=== PATIENT | female | born 1965 | race African-American/Black ===

== ENCOUNTER 2020-02-21 06:01 | Observation (INO) | payer OTHER ==
[~2020-02-21] VITALS: Ht 160 cm; Wt 58.7 kg
[2020-02-21] VITALS (9 sets, daily range): BP systolic 115–182; BP diastolic 67–119
[2020-02-21] MEDS ORDERED: NITRO0.4 SL (06:06)
[2020-02-21] MEDS ORDERED: hydroCHLOROthiazide 25mg cap ORAL ONE (06:15)
[2020-02-21] MEDS ORDERED: Aspirin Baby 81mg ORAL ONE (06:15)
--- NOTE | 2020-02-21 06:18 | Emergency Room Report ---
History of Present Illness General Chief Complaint: Abdominal Pain Source: EMS Present Illness HPI Patient is a 56-year-old female who presents after increased right-sided chest discomfort. Reports having onset of symptoms just prior to arrival 30 minutes. He reports that she reports having increased sharp pain to the right side. Does not radiate. Also reports having a right upper abdomen pain. Denies any hematemesis. States she is not a smoker. Reports having prior history of hypertension and CHF. No prior abdominal surgeries other than . Patient states she ran out of her hydrochlorothiazide 2 days ago. Denies any new leg swelling. Denies any fever. Denies any cough. 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 Patient History Past Medical History: see triage record Reviewed Nursing Documentation: PMH: Agreed; PSxH: Agreed Nursing Documentation-PMH Hx Cardiac Problems: Yes - CHF Hx Hypertension: Yes Review of Systems All Other Systems: negative except mentioned in HPI Physical Exam Vital Signs Date Time Temp Pulse Resp B/P (MAP) Pulse Ox O2 Delivery O2 Flow Rate FiO2 02/21/20 06:01 98.8 68 18 181/119 (139) 99 Room Air Sp02 EP Interpretation: reviewed, normal General Appearance: normal inspection, well appearing, no apparent distress, alert, GCS 15, non-toxic Head: atraumatic ENT: normal ENT inspection, hearing grossly normal, normal voice Neck: normal inspection, full range of motion, supple, no bony tend Respiratory: normal inspection, lungs clear, normal breath sounds, no respiratory distress, no retraction, no wheezing Cardiovascular #1: regular rate, rhythm, no edema Gastrointestinal: normal inspection, normal bowel sounds, non tender, soft, no guarding, no hernia Genitourinary: no CVA tenderness Musculoskeletal: normal inspection, back normal, normal range of motion Neurologic: alert, motor strength/tone normal, bridge repairer III-XII nml as tested, oriented x3, responsive, speech normal, normal inspection Psychiatric: normal inspection, judgement/insight normal, mood/affect normal Medical Decision Making Diagnostic Impression: Primary Impression: Chest pain Additional Impressions: Incomplete RBBB Uncontrolled hypertension ER Course Patient presented for abdominal pain. Differential diagnosis include was not limited to gastritis, pancreatitis, coronavirus infection, pneumonia, myocardial infarction among others. Because of complexity of patient's case laboratory tests and imaging studies were ordered.EKG interpreted by me showed normal sinus rhythm with a rate of [address] and T wave changes. Patient was given aspirin as well as nitroglycerin. Patient does not appear to be in any acute distress. Does not appear to be in any acute respiratory distress. Patient's blood pressure and pain improved after medications. Initial troponin was negative. Patient will be hospitalized due to chest discomfort. Does not appear to have any evidence of acute PR Repeat EKG was unchanged. Patient refused x-ray imaging. Dr. Cesar Weldon was contacted for inpatient management Labs Test 02/21/20 06:25 White Blood Count 4.9 K/UL (4.8-10.8) Red Blood Count 4.45 M/UL (4.20-5.40) Hemoglobin 13.6 G/DL (12.0-16.0) Hematocrit 40.6 % (37.0-47.0) Mean Corpuscular Volume 91 FL (80-99) Mean Corpuscular Hemoglobin 30.6 PG (27.0-31.0) Mean Corpuscular Hemoglobin Concent 33.5 G/DL (32.0-36.0) Red Cell Distribution Width 13.7 % (11.6-14.8) Platelet Count 195 K/UL (150-450) Mean Platelet Volume 6.9 FL (6.5-10.1) Neutrophils (%) (Auto) 58.8 % (45.0-75.0) Lymphocytes (%) (Auto) 33.5 % (20.0-45.0) Monocytes (%) (Auto) 5.3 % (1.0-10.0) Eosinophils (%) (Auto) 1.7 % (0.0-3.0) Basophils (%) (Auto) 0.7 % (0.0-2.0) Prothrombin Time 10.4 SEC (9.30-11.50) Prothromb Time International Ratio 0.9 (0.9-1.1) Activated Partial Thromboplast Time 25 SEC (23-33) Sodium Level 142 MMOL/L (136-145) Potassium Level 3.3 MMOL/L (3.5-5.1) Chloride Level 104 MMOL/L (98-107) Carbon Dioxide Level 29 MMOL/L (21-32) Anion Gap 9 mmol/L (5-15) Blood Urea Nitrogen 16 mg/dL (7-18) Creatinine 1.0 MG/DL (0.55-1.30) Estimat Glomerular Filtration Rate > 60 mL/min (>60) Glucose Level 94 MG/DL (74-106) Calcium Level 10.0 MG/DL (8.5-10.1) Total Bilirubin 0.4 MG/DL (0.2-1.0) Aspartate Amino Transf (AST/SGOT) 17 U/L (15-37) Alanine Aminotransferase (ALT/SGPT) 24 U/L (12-78) Alkaline Phosphatase 67 U/L (46-116) Troponin I 0.039 ng/mL (0.000-0.056) C-Reactive Protein, Quantitative < 0.4 mg/dL (0.00-0.90) Pro-B-Type Natriuretic Peptide 15 pg/mL (0-125) Total Protein 7.6 G/DL (6.4-8.2) Albumin 3.8 G/DL (3.4-5.0) Globulin 3.8 g/dL Albumin/Globulin Ratio 1.0 (1.0-2.7) Lipase 125 U/L (73-393) Urine Opiates Screen Negative (NEGATIVE) Urine Barbiturates Screen Negative (NEGATIVE) Phencyclidine (PCP) Screen Negative (NEGATIVE) Urine Amphetamines Screen Negative (NEGATIVE) Urine Benzodiazepines Screen Negative (NEGATIVE) Urine Cocaine Screen Negative (NEGATIVE) Urine Marijuana (THC) Screen Negative (NEGATIVE) EKG Diagnostic Results Rate: normal Rhythm: NSR ST Segments: other - nonspecific st changes Last Vital Signs Date Time Temp Pulse Resp B/P (MAP) Pulse Ox O2 Delivery O2 Flow Rate FiO2 02/21/20 06:01 98.8 68 18 181/119 (139) 99 Room Air Status: improved Disposition: SHORT-TERM HOSP Condition: Stable Kareem Rogers MD Feb 21, 2020 06:18
[2020-02-21] MEDS: Nitroglycerin Subl 0.4mg tab SL PRN ×2 (06:21→06:32)
[2020-02-21 06:53] LABS: INR 0.9 (0.9-1.1)
[2020-02-21 06:54] LABS: ANION GAP 9 mmol/L (5-15); BLOOD UREA NITROGEN 16 mg/dL (7-18); CARBON DIOXIDE 29 MMOL/L (21-32); CHLORIDE 104 MMOL/L (98-107); POTASSIUM 3.3 MMOL/L (3.5-5.1); SODIUM 142 MMOL/L (136-145)
[2020-02-21 07:05] LABS: ALANINE AMINOTRANSFERASE 24 U/L (12-78); ALBUMIN 3.8 G/DL (3.4-5.0); ALKALINE PHOSPHATASE 67 U/L (46-116); ASPARTATE AMINO TRANSFERASE 17 U/L (15-37); BILIRUBIN,TOTAL 0.4 MG/DL (0.2-1.0)
[2020-02-21 07:10] LABS: BASOPHILS % (AUTO) 0.7 % (0.0-2.0); EOSINOPHILS % (AUTO) 1.7 % (0.0-3.0); HEMATOCRIT 40.6 % (37.0-47.0); HEMOGLOBIN 13.6 G/DL (12.0-16.0); LYMPHOCYTES % (AUTO) 33.5 % (20.0-45.0); MEAN CORPUSCULAR VOLUME 91 FL (80-99); MONOCYTES % (AUTO) 5.3 % (1.0-10.0); NEUTROPHILS % (AUTO) 58.8 % (45.0-75.0); PLATELET COUNT 195 K/UL (150-450); RED BLOOD COUNT 4.45 M/UL (4.20-5.40); RED CELL DISTRIBUTION WIDTH 13.7 % (11.6-14.8); WHITE BLOOD COUNT 4.9 K/UL (4.8-10.8)
[2020-02-21 07:19] LABS: APPEARANCE,URINE CLEAR; BILIRUBIN, URINE NEGATIVE (NEGATIVE); COLOR,URINE PALE YELLOW; GLUCOSE, URINE (UA) NEGATIVE (NEGATIVE); KETONES,URINE NEGATIVE (NEGATIVE); LEUKOCYTE ESTERASE ,URINE NEGATIVE (NEGATIVE); NITRITE,URINE NEGATIVE (NEGATIVE); PH,URINE 7 (4.5-8.0); PROTEIN,URINE NEGATIVE (NEGATIVE); UROBILINOGEN,URINE NORMAL MG/DL (0.0-1.0)
[2020-02-21] MEDS ORDERED: Nitroglycerin 2% oint pkt TOPIC ONE (08:00)
[2020-02-21] MEDS ORDERED: Albuterol/Ipratropium 3ml neb HHN PRN (11:00)
[2020-02-21] MEDS ORDERED: Labetalol 5mg/ml 20ml vial IV PRN (11:00)
[2020-02-21] MEDS ORDERED: Miralax 17gm pkt ORAL PRN (11:00)
[2020-02-21] MEDS ORDERED: Enalaprilat 2.5mg/2ml Inj IV PRN (11:00)
[2020-02-21] MEDS ORDERED: Nitroglycerin Subl 0.4mg tab SL PRN (11:00)
[2020-02-21] MEDS ORDERED: dilTIAZem HCl 25mg/5ml Inj IV PRN (11:00)
[2020-02-21] MEDS: Sucralfate 1gm tab ORAL SCH ×4 (13:30→21:00)
--- NOTE | 2020-02-21 16:54 | History & Physical ---
History and Physical History & Physicial Dictated for Int Med-DR Weldon no. [id number] Jericho Miller MD Feb 21, 2020 16:54
--- NOTE | 2020-02-21 18:45 | History and Physical Report ---
DATE OF ADMISSION: 02/21/2020 CHIEF COMPLAINT: Patient is a 54-year-old female who presents with a chief complaint of chest pain. HISTORY OF PRESENT ILLNESS: Patient states she ran out of her hydrochlorothiazide 4 days ago. Patient states that she began to experience right-sided chest pain yesterday, February 20, 2020. Pain is located under the right breast. Patient states the pain resolved. Patient states pain returned this morning about 2 a.m. Patient began to experience nausea. Patient vomited 1 time. Patient then began to experience right upper quadrant pain. Patient presented to [facility]. Blood pressure was found to be in the 180s/119. Patient is admitted with right-sided chest pain and uncontrolled hypertension/hypertensive emergency. REVIEW OF SYSTEMS: CONSTITUTIONAL: Patient denies weight loss, weight gain. Patient denies fevers or chills. HEENT: Patient denies ear or throat pain. Patient denies headache. CARDIOVASCULAR: Patient complains of chest pain as above. Patient denies palpitations. CHEST: Patient denies wheezing or shortness of breath. ABDOMEN: Patient complains of right upper quadrant pain as above. Patient complains of nausea with emesis x1 as above. Patient denies diarrhea or constipation. GENITOURINARY: Patient denies dysuria or increased frequency of urination. NEUROMUSCULAR: Patient denies seizures or generalized weakness. PAST MEDICAL HISTORY: Significant for: 1. Hypertension. 2. Congestive heart failure. PAST SURGICAL HISTORY: Significant for section x2. CURRENT MEDICATIONS: 1. Hydrochlorothiazide 25 mg 1 tablet p.o. daily. 2. Aspirin 81 mg p.o. daily. ALLERGIES: Penicillin. SOCIAL HISTORY: Patient is single. Patient is unemployed. Patient denies tobacco use. Patient admits to occasional alcohol use. PHYSICAL EXAMINATION: VITAL SIGNS: Temperature 98.8, respirations 18, pulse 68, blood pressure 181/119. GENERAL: Patient is well-developed, well-nourished female, in no apparent distress. HEENT: Eyes, pupils equal, responsive to light and accommodation. Extraocular movements are intact. NECK: Supple without lymphadenopathy. CHEST: Lungs are clear to auscultation bilaterally without wheezes or rales. CARDIOVASCULAR: Regular rhythm, rate. S1-S2 are normal without murmurs, rubs, or gallops. ABDOMEN: Soft, nontender, and nondistended. Positive bowel sounds. No evidence of hepatosplenomegaly. Currently no rebound or guarding noted. EXTREMITIES: Negative for clubbing, cyanosis, or edema. RECTAL/GENITALIA: Exams are not performed. NEUROLOGIC: Cranial nerves II through XII are grossly intact without focal deficits. Motor strength is 5/5 bilaterally. Deep tendon reflexes are 2+, plantar. An EKG demonstrated sinus bradycardia at approximately 50 beats per minute. There are no acute ST changes or Q-waves noted. LABORATORY STUDIES: WBC 4.9, hemoglobin 13.6, hematocrit 40.6, platelets 195,000. Sodium 142, potassium 3.2, chloride 104, CO2 29, BUN 16, creatinine 1.0, glucose 94. Troponin 0.039. ASSESSMENT: This is a 54-year-old female. 1. Hypertensive emergency. 2. Chest pain. 3. Nausea with vomiting. Right upper quadrant pain. 4. History of congestive heart failure. TREATMENT: 1. Chest pain/uncontrolled hypertension. Chest pain may be secondary to demand ischemia secondary to hypertensive emergency. A cardiology consultation will be obtained with Dr. Warner Villarreal. An echocardiogram is pending. We will follow recommendations of Cardiology. Patient has been started empirically on diltiazem, labetalol, and enalapril intravenously. We will follow recommendations of Cardiology. 2. History of congestive heart failure. A BNP is pending. Jericho Miller M.D. DR: MARLI JOB#: [id number] CC:
[2020-02-21] MEDS: Heparin 5000 units/ml inj SUBQ SCH (20:58)
[2020-02-22] VITALS: BP 146/84
[2020-02-22 04:00] VITALS: BP 154/84
[2020-02-22] MEDS: Sucralfate 1gm tab ORAL SCH ×2 (05:53→11:30)
[2020-02-22 08:00] VITALS: BP 151/96
[2020-02-22 09:07] VITALS: BP 151/96
[2020-02-22 09:16] VITALS: BP 151/96
[2020-02-22] MEDS: Heparin 5000 units/ml inj SUBQ SCH (09:20)
[2020-02-22 12:00] VITALS: BP 134/81
--- NOTE | 2020-02-22 12:57 | Consultation ---
History of Present Illness General Date patient seen: Feb 22, 2020 Chief Complaint: Abdominal Pain Present Illness HPI 56-year-old female with hx of HTN and CHF presents to ER by paramedics with CC of right-sided chest discomfort just prior to arrival 30 minutes. She also eports having a right upper abdomen pain without any other GI symptoms. She ran out of her hydrochlorothiazide 2 days ago. Allergies: Coded Allergies: No Known Allergies (Unverified , 02/21/20) Medication History Scheduled PRN Nitroglycerin 0.4MG table* (Nitroglycerin*), 0.4 MG SL .Q5MIN X 3 DOSES PRN for CHEST PAIN, (Reported) Patient History Healthcare decision maker Resuscitation status Advanced Directive on File Past Medical/Surgical History Past Medical/Surgical History: (1) History of hypertension Review of Systems All Other Systems: negative except mentioned in HPI Physical Exam General Appearance: WD/WN, no apparent distress Lines, tubes and drains: peripheral HEENT: normocephalic, atraumatic Neck: non-tender, normal alignment Respiratory/Chest: chest wall non-tender, lungs clear Cardiovascular/Chest: normal peripheral pulses, normal rate Abdomen: normal bowel sounds, non tender Genitourinary/Rectal: normal genital exam Extremities: normal range of motion Skin Exam: normal pigmentation Last 24 Hour Vital Signs Date Time Temp Pulse Resp B/P (MAP) Pulse Ox O2 Delivery O2 Flow Rate FiO2 02/22/20 11:05 98.1 02/22/20 09:31 Room Air 02/22/20 09:16 98.1 64 18 151/96 (114) 99 02/22/20 09:07 98.1 71 18 151/96 (114) 98 02/22/20 08:52 56 02/22/20 08:00 98.1 71 18 151/96 (114) 98 02/22/20 04:00 97.7 88 18 154/84 (107) 97 02/22/20 04:00 107 02/22/20 00:00 97.5 74 17 146/84 (104) 97 02/22/20 00:00 72 02/21/20 21:25 96 144/96 (112) 02/21/20 21:00 Room Air 02/21/20 20:58 164/106 02/21/20 20:00 73 02/21/20 20:00 97.4 74 18 164/106 (125) 97 02/21/20 16:53 67 02/21/20 16:00 97.6 72 18 127/68 (87) 100 Height (Feet): 5 Height (Inches): 3.00 Weight (Pounds): 129 Medications Current Medications Medications (Trade) Dose Ordered Sig/Erendira Route PRN Reason Start Time Stop Time Status Last Admin Dose Admin Acetaminophen (Tylenol) 650 mg Q4H PRN ORAL Mild Pain (Pain Scale 1-3) 02/22/20 09:30 03/23/20 09:29 02/22/20 10:35 Acetaminophen (Tylenol) 650 mg Q4H PRN ORAL FEVER 02/21/20 11:00 03/22/20 10:59 Albuterol/ Ipratropium (Albuterol/ Ipratropium) 3 ml Q4H PRN HHN Shortness of Breath 02/21/20 11:00 02/26/20 10:59 Diltiazem HCl (Cardizem) 10 mg Q1H PRN IV heart rate more than 120, 02/21/20 11:00 03/22/20 10:59 Enalaprilat (Vasotec) 2.5 mg Q6H PRN IV sbp more than 160 02/21/20 11:00 03/22/20 10:59 02/21/20 20:58 Heparin Sodium (Porcine) (Heparin 5000 units/ml) 5,000 units EVERY 12 HOURS SUBQ 02/21/20 21:00 04/06/20 20:59 02/22/20 09:20 Labetalol HCl (Normodyne) 20 mg Q1H PRN IV sbp more than 180 02/21/20 11:00 03/22/20 10:59 Nitroglycerin (Ntg) 0.4 mg Q5M PRN SL Prn Chest Pain 02/21/20 11:00 03/22/20 10:59 Ondansetron HCl (Zofran) 4 mg Q6H PRN IVP Nausea & Vomiting 02/21/20 11:00 03/22/20 10:59 Pantoprazole (Protonix) 40 mg DAILY ORAL 02/22/20 09:00 03/23/20 08:59 Polyethylene Glycol (Miralax) 17 gm DAILYPRN PRN ORAL Constipation 02/21/20 11:00 03/22/20 10:59 Sucralfate (Carafate) 1 gm AC+HS ORAL 02/21/20 13:00 05/21/20 12:59 02/21/20 13:30 Temazepam (Restoril) 15 mg HSPRN PRN ORAL Insomnia 02/21/20 11:00 02/28/20 10:59 Assessment/Plan Problem List: (1) Chest pain ICD Codes: R07.9 - Chest pain, unspecified SNOMED: 05642431, 65804315 (2) Uncontrolled hypertension ICD Codes: I10 - Essential (primary) hypertension SNOMED: 41980603, 45772837 (3) History of hypertension ICD Codes: Z86.79 - Personal history of other diseases of the circulatory system SNOMED: 248224163 Assessment/Plan: telemetry serial ekg, troponin echocardiogram symptomatic treatment monitor BP antihypertensive treatment. Rashel Storm MD Feb 22, 2020 12:57
[2020-02-22] MEDS ORDERED: DIURIL25 MG ORAL (12:59)
[2020-02-22] MEDS ORDERED: LISINOPRIL5 MG ORAL (13:00)
--- NOTE | 2020-02-22 16:54 | Internal Med Progress Note ---
Subjective Physician Name Cesar Weldon Attending Physician Cesar Weldon MD Allergies: Coded Allergies: No Known Allergies (Unverified , 02/21/20) Subjective awake, alert, responsive, No Nausea or Vomiting. Objective Last Vital Signs Date Time Temp Pulse Resp B/P (MAP) Pulse Ox O2 Delivery O2 Flow Rate FiO2 02/22/20 12:30 56 02/22/20 12:00 97.6 18 134/81 (98) 97 02/22/20 09:31 Room Air Objective Physical Exam General: No acute distress, awake and alert HEENT: NCAT, sclera anicteric, PERRL, EOMI. Neck: Supple, no significant jugular venous distention, Lungs: Good inspiratory effort, no accessory muscle use, clear to auscultation bilaterally, no Wheeze or Rales. Heart: Regular rate and rhythm, normal S1/S2, no murmurs/gallops Abdomen: soft, nontender, nondistended. Normoactive bowel sounds. / Rectal: Refused and deferred. Extremities: No Cyanosis , clubbing or edema. Neuro: A&O x 3, Able to move all extremities Skin: warm, no rashes or lesions Psych: Normal mood and affect Assessment/Plan Assessment/Plan ASSESSMENT: This is a 54-year-old female. 1. Hypertensive emergency. 2. Chest pain. 3. Nausea with vomiting. Right upper quadrant pain. 4. History of congestive heart failure. TREATMENT: 1. Chest pain/uncontrolled hypertension. Chest pain may be secondary to demand ischemia secondary to hypertensive emergency. A cardiology consultation will be obtained with Dr. Warner Villarreal. An echocardiogram is pending. We will follow recommendations of Cardiology. Patient has been started empirically on diltiazem, labetalol, and enalapril intravenously. We will follow recommendations of Cardiology. 2. History of congestive heart failure. DC home today. Cesar Weldon MD Feb 22, 2020 16:54
== END 2020-02-22 15:53 | disposition home or self-care (01) ==
LOC: EDBD 06:01 → EMR 06:16 → 2E 07:03 → EDBEDREQ 08:14 → 2E 23:17
DX: R07.9 Chest pain, unspecified (principal); I11.0 Hypertensive heart disease with heart failure; I16.1 Hypertensive emergency; I50.9 Heart failure, unspecified; I24.8 Other forms of acute ischemic heart disease; R10.11 Right upper quadrant pain; Z79.82 Long term (current) use of aspirin; Z79.899 Other long term (current) drug therapy; Z88.0 Allergy status to penicillin; R11.2 Nausea with vomiting, unspecified; R00.1 Bradycardia, unspecified
CPT/HCPCS: 36415; 71045; 80053; 80307; 81003; 83690; 83880; 84484; 85025; 85379; 85610; 85730; 86140; 93005; 93306; 96374; J1644; Z7502; Z7514; 99284; G0378; J8499

== ENCOUNTER 2020-08-02 09:56 | Emergency (ER) | payer OTHER ==
[~2020-08-02] VITALS: Ht 160 cm; Wt 61.2 kg
[~2020-08-02 09:56] MED LIST: DIURIL25 MG ORAL; LISINOPRIL5 MG ORAL; NITRO0.4 SL
[2020-08-02 10:06] VITALS: BP 169/105
--- NOTE | 2020-08-02 11:26 | Diagnostic Imaging Report ---
EXAM: XR Chest, 1 View CLINICAL HISTORY: COUGH TECHNIQUE: Frontal view of the chest. COMPARISON: No relevant prior studies available. FINDINGS: Lungs: Unremarkable. The lungs appear clear. No focal consolidation. Pleural space: Unremarkable. The costophrenic angles are sharp. No visible pneumothorax. Heart: Unremarkable. No cardiomegaly. Mediastinum: Unremarkable. Bones/joints: Unremarkable. IMPRESSION: Unremarkable chest x-ray.
--- NOTE | 2020-08-02 11:35 | Diagnostic Imaging Report ---
EXAM: XR Left Foot, 3 Views CLINICAL HISTORY: Left great toe pain TECHNIQUE: Frontal, lateral, and oblique views of the left foot. COMPARISON: No relevant prior studies available. FINDINGS: Bones/joints: Hallux valgus with mild bunion formation. Severe degenerative joint space loss at the first and second tarsometatarsal joints and moderate degenerative joint space loss at the first metatarsophalangeal joint. No visible fracture. Soft tissues: Unremarkable. No radiopaque foreign body. IMPRESSION: 1. Hallux valgus with mild bunion formation. 2. Severe degenerative joint space loss at the first and second tarsometatarsal joints and moderate degenerative joint space loss at the first metatarsophalangeal joint.
[2020-08-02] MEDS ORDERED: ONDANSETRON ODT4 MG BC (13:00)
[2020-08-02] MEDS ORDERED: NORCO 5-325 TA1 EAC1 ORAL (13:00)
[2020-08-02] MEDS ORDERED: LIDODERM700 M1 TOPIC (13:00)
[2020-08-02] MEDS ORDERED: PROMETHAZI6.25 MG/1 ORAL (13:00)
[2020-08-02] MEDS ORDERED: HYDROCHLOROTHIA25 MG ORAL (13:10)
[2020-08-02 13:20] VITALS: BP 169/105
--- NOTE | 2020-08-02 13:44 | Diagnostic Imaging Report ---
EXAM: XR Lumbar Spine, 3 Views CLINICAL HISTORY: PAIN TECHNIQUE: Frontal, lateral, and lateral coned-down views of the lumbar spine. COMPARISON: No relevant prior studies available. FINDINGS: Vertebrae: Grade 1 anterolisthesis of L5 left S1 with 10 mm offset. Lumbar vertebral body heights are preserved. Disc spaces: Moderate degenerative disc space loss at L5-S1. Soft tissues: Unremarkable. Other findings: There are 5 ltm-mny-ahrgirm lumbar vertebral segments. IMPRESSION: 1. Grade 1 anterolisthesis of L5 left S1 with 10 mm offset. 2. Moderate degenerative disc space loss at L5-S1.
--- NOTE | 2020-08-03 07:25 | Emergency Room Report ---
History of Present Illness General Chief Complaint: Upper Respiratory Illness Source: Patient Present Illness HPI 54-year-old female presents for multiple complaints. States she has pain in her left leg and back status post fall few days ago. Pain is throbbing, 10 out of 10, nonradiating. Also states she is had a cough for a few days. Denies chest pain. Cough is productive with mucus. Denies fevers or chills. No other aggravating relieving factors. Denies any other associated symptoms Allergies: Coded Allergies: PENICILLINS (Verified Allergy, Unknown, 08/02/20) COVID-19 Screening Contact w/high risk pt: No Experienced COVID-19 symptoms?: Yes COVID-19 Testing performed CREDIT SPECIALIST: No Patient History Past Medical History: HTN Past Surgical History: none Pertinent Family History: none Social History: Denies: smoking, alcohol use, drug use Now: No Immunizations: UTD Reviewed Nursing Documentation: PMH: Agreed; PSxH: Agreed Nursing Documentation-PMH Past Medical History: No History, Except For Hx Cardiac Problems: Yes - CHF Hx Hypertension: Yes Review of Systems All Other Systems: negative except mentioned in HPI Physical Exam Vital Signs Date Time Temp Pulse Resp B/P (MAP) Pulse Ox O2 Delivery O2 Flow Rate FiO2 08/02/20 10:06 99.0 71 15 169/105 98 Room Air Sp02 EP Interpretation: reviewed, normal General Appearance: no apparent distress, alert, GCS 15, non-toxic Head: normocephalic, atraumatic Eyes: bilateral eye normal inspection, bilateral eye PERRL ENT: hearing grossly normal, normal pharynx, no angioedema, normal voice Neck: full range of motion, supple/symm/no masses Respiratory: chest non-tender, lungs clear, normal breath sounds, speaking full sentences Cardiovascular #1: regular rate, rhythm, no edema Cardiovascular #2: 2+ carotid (R), 2+ carotid (L), 2+ radial (R), 2+ radial (L), 2+ dorsalis pedis (R), 2+ dorsalis pedis (L) Gastrointestinal: normal bowel sounds, non tender, soft, non-distended, no guarding, no rebound Rectal: deferred Genitourinary: normal inspection, no CVA tenderness, vertebral tenderness Musculoskeletal: back normal, normal range of motion, gait/station normal, te nder - L foot Neurologic: alert, motor strength/tone normal, oriented x3, sensory intact, responsive, speech normal Psychiatric: judgement/insight normal, memory normal, mood/affect normal, no suicidal/homicidal ideation, anxious Reflexes: 3+ bicep (R), 3+ bicep (L), 3+ tricep (R), 3+ tricep (L), 3+ knee (R), 3+ knee (L) Skin: no rash Lymphatic: no adenopathy Medical Decision Making Diagnostic Impression: Primary Impression: Back pain Qualified Codes: M54.5 - Low back pain; G89.29 - Other chronic pain Additional Impressions: Upper respiratory infection Qualified Codes: J06.9 - Acute upper respiratory infection, unspecified History of hypertension Opioid abuse ER Course Hospital Course 54-year-old female presents with cough, leg pain, back pain status post fall Differential diagnoses include: Fracture, dislocation, sprain, contusion Clinical course Patient placed on stretcher. After initial history and physical, I ordered x- ray, x-rays of L-spine and ankle Chest x-ray shows no focal consolidation no patchy opacities Xrays prelim read shows no acute fracture/dislocation. placed in wilfrido wrap, given crutches Patient requested that she be admitted for pain control. Patient has been observed walking in ED without no difficulty. I explained that there is no indication for admission at this time. Patient became very anxious and started crying. Is requesting pain meds. I discussed with the patient that Majority of her complaints are chronic and do not require acute care. Would benefit from a PMD. Does not have a PMD. I will provide referrals patient requesting a rapid COVID test. i offered a regular COVID test and she agreed. on CURES patient has had previous narcotic prescriptions filled Diagnosis - back pain, URI, history of hypertension, opioid abuse Stable and discharged to home. weight bear as tolerated. Followup with PMD. Return to ED if symptoms recur or worsen Chest X-Ray Diagnostic Results Chest X-Ray Diagnostic Results : Chest X-Ray Ordered: Yes # of Views/Limited/Complete: 1 View Indication: Other - Cough EP Interpretation: Yes Interpretation: no consolidation, no effusion, no pneumothorax, no acute cardiopulmonary disease Impression: No acute disease Electronically Signed by: Electronically signed by Ronnie Santo MD Other X-Ray Diagnostic Results Other X-Ray Diagnostic Results #1: X-Ray ordered: L-spine # of Views/Limited Vs Complete: 3 View Indication: Pain EP Interpretation: Yes Interpretation: no dislocation, no soft tissue swelling, no fractures Impression: No acute disease Electronically Signed by: Electronically signed by Ronnie Santo MD Other X-Ray Diagnostic Results #2: X-Ray ordered: Left foot # of Views/Limited Vs Complete: 3 View Indication: Pain EP Interpretation: Yes Interpretation: no dislocation, no soft tissue swelling, no fractures Impression: No acute disease Electronically Signed by: Electronically signed by Ronnie Santo MD Last Vital Signs Date Time Temp Pulse Resp B/P (MAP) Pulse Ox O2 Delivery O2 Flow Rate FiO2 08/02/20 13:20 99.0 71 15 169/105 98 Room Air Status: improved Disposition: HOME, SELF-CARE Condition: Stable Scripts Hydrochlorothiazide* (HYDROCHLOROTHIAZIDE*) 25 Mg Tablet 25 MG ORAL DAILY, #30 TAB Prov: Ronnie Santo MD 08/02/20 Ondansetron Odt* (ZOFRAN ODT*) 4 Mg Tab.rapdis 4 MG BC EVERY 6 HOURS PRN for Nausea & Vomiting, #10 TAB 0 Refills Prov: Ronnie Santo MD 08/02/20 Promethazine Hcl (PROMETHAZINE HCL*) 6.25 Mg/5 Ml Syrup 5 ML ORAL Q6H, #120 ML 0 Refills Prov: Ronnie Santo MD 08/02/20 Lidocaine Patch* (Lidoderm Patch*) 1 Each Adh..patch 1 PATCH TOPIC DAILY, #7 PATCH 0 Refills Patch(es) may remain in place for up to 12 hours in any 24-hour period. Prov: Ronnie Santo MD 08/02/20 Hydrocodone Bit/Acetaminophen 5-325* (NORCO 5-325 TABLET*) 1 Each Tablet 1 TAB ORAL Q6H PRN for FOR PAIN, #10 TAB 0 Refills Prov: Ronnie Santo MD 08/02/20 Referrals: [facility] Open 24 hour /7 days a week by Appointment Only [address] [facility] [address] [address] Patient Instructions: Upper Respiratory Infection, Adult Additional Instructions: we tested you for COVID. continue to self-isolate. we will contact you with your test results in 48-72 hours. Ronnie Santo MD Aug 03, 2020 07:25
== END 2020-08-02 13:20 | disposition home or self-care (01) ==
LOC: EMR 10:32
DX: M54.5 Low back pain (principal); J06.9 Acute upper respiratory infection, unspecified; F11.10 Opioid abuse, uncomplicated; I11.0 Hypertensive heart disease with heart failure; I50.9 Heart failure, unspecified; Z88.0 Allergy status to penicillin
CPT/HCPCS: 71045; 72020; 73620; U0004; Z7502; 99284